=== PATIENT | female | born 1950 | race Caucasian/White ===

== ENCOUNTER 2020-01-15 16:02 | Inpatient (IN) | payer MEDICARE, OTHER ==
[~2020-01-15] VITALS: Ht 165.1 cm; Wt 84.3 kg
[2020-01-15] MEDS ORDERED: IV NORMAL SALINE 1,000ML 1,000 ML IV SCH (16:31)
[2020-01-15] MEDS ORDERED: IPRATRPIUM/ALBUTEROL 0.5/2.5MG 3 ML NEBU. ONE (16:48)
[2020-01-15] MEDS ORDERED: DEXAMETHASONE SOD PHOS 10 MG/ML VIAL. ONE (16:48)
--- NOTE | 2020-01-15 16:57 | EKG ---
[address] [address] Test Date: 2020-01-15 Test Time: 16:16:33 Pat Name: MARCO A DENG Department: Room: Gender: F Worship Leader: : 1950 Requested By: BLADIMIR SINGLETARY Order Number: [id number] Reading MD: Measurements Intervals [place] Rate: 75 P: 59 KS: 156 QRS: 54 QRSD: 98 T: 56 QT: 392 QTc: 440 Interpretive Statements SINUS RHYTHM NORMAL ECG RI6.02 No previous ECG available for comparison
[2020-01-15 17:00] LABS: BASO # 0.1 x10^3/uL (0.0-0.2); BASO % 1 % (0-3); EOS # 0.4 x10^3/uL (0.0-0.7); EOS % 6 % (0-3); HEMOGLOBIN 14.7 g/dL (12.0-15.5); LYMPH # 1.8 x10^3/uL (1.0-4.8); LYMPH % 26 % (24-48); MEAN CORPUSCULAR HEMOGLOBIN 27 pg (25-35); MEAN CORPUSCULAR HGB CONC 33 g/dL (31-37); MEAN CORPUSCULAR VOLUME 81 fL (79-100); MONO # 0.7 x10^3/uL (0.0-1.1); MONO % 10 % (0-9); NEUT % 57 % (31-73); PLATELET COUNT 330 x10^3/uL (140-400); RED BLOOD COUNT 5.42 x10^6/uL (3.50-5.40); RED CELL DISTRIBUTION WIDTH 15.9 % (11.5-14.5)
[2020-01-15] MEDS ORDERED: IPRATRPIUM/ALBUTEROL 0.5/2.5MG 3 ML NEBU. NEB ONE (17:00)
[2020-01-15] MEDS ORDERED: DEXAMETHASONE SOD PHOS 10 MG/ML VIAL. IV ONE (17:00)
[2020-01-15 17:02] LABS: CALCIUM 8.6 mg/dL (8.5-10.1); CREATININE 0.9 mg/dL (0.6-1.0); GFR 61.9; POTASSIUM 3.4 mmol/L (3.5-5.1)
[2020-01-15 17:14] LABS: ALBUMIN/GLOBULIN RATIO 1.1 (1.0-1.7); TOTAL BILIRUBIN 0.4 mg/dL (0.2-1.0); TOTAL PROTEIN 7.6 g/dL (6.4-8.2)
--- NOTE | 2020-01-15 17:33 | RAD ---
PORTABLE CHEST 1V History: Reason: soa / Spl. Instructions: / History: Comparison: CT December 29, 2012 Findings: Patchy left basilar opacity. No pleural effusion. No pneumothorax. Impression: 1. Patchy left basilar opacity, represent atelectasis or developing consolidation. Recommend follow-up. Electronically signed by: Franky Perry DO (01/15/2020 5:30 PM) [facility] – [place]
--- NOTE | 2020-01-15 17:37 | PHYS DOC ---
Past History Past Medical History: Asthma, COPD Past Surgical History: Hysterectomy Alcohol Use: None General Adult EDM: Chief Complaint: SHORTNESS OF BREATH HPI: HPI: 69-year-old female past medical history significant for COPD/asthma and current tobacco dependence, presents to the ED with complaints of worsening shortness of breath for the past few days, states she returned from [place] yesterday. States this feels like her COPD, last exacerbation was 2 to 3 years ago in which she was intubated at [facility]. No steroid use since then. States she was visiting family in [place], no known exposure to COVID-does not around any large crowds. Ports associated dry cough. ROS: Review of Systems: Review of Systems: Constitutional: Denies fever or chills Eyes: Denies change in visual acuity HENT: Denies nasal congestion or sore throat Respiratory: Denies cough or shortness of breath Cardiovascular: Denies chest pain or edema GI: Denies abdominal pain, nausea, vomiting, bloody stools or diarrhea : Denies dysuria Musculoskeletal: Denies back pain or joint pain Integument: Denies rash Neurologic: Denies headache, focal weakness or sensory changes Endocrine: Denies polyuria or polydipsia Lymphatic: Denies swollen glands Psychiatric: Denies depression or anxiety Heart Score: Risk Factors: Risk Factors: DM, Current or recent (<one month) smoker, HTN, HLP, family history of CAD, obesity. Risk Scores: Score 0 - 3: 2.5% MACE over next 6 weeks - Discharge Home Score 4 - 6: 20.3% MACE over next 6 weeks - Admit for Clinical Observation Score 7 - 10: 72.7% MACE over next 6 weeks - Early Invasive Strategies Current Medications: Current Meds: Current Medications Medications (Trade) Dose Ordered Sig/Rut Start Time Stop Time Status Last Admin Dose Admin Albuterol/ Ipratropium (Duoneb) 3 ml STK-MED ONCE 01/15/20 16:48 01/15/20 16:49 DC Dexamethasone Sodium Phosphate (Decadron) 10 mg STK-MED ONCE 01/15/20 16:48 01/15/20 16:49 DC Sodium Chloride 1,000 ml @ 1,000 mls/hr Q1H 01/15/20 16:31 01/15/20 17:30 DC 01/15/20 16:49 1,000 MLS/HR Allergies: Allergies: Allergies Coded Allergies Type Severity Reaction Last Updated Verified No Known Drug Allergies 01/15/20 No Physical Exam: PE: Constitutional: Well developed, well nourished, no acute distress, non-toxic appearance. [] HENT: Normocephalic, atraumatic, bilateral external ears normal, oropharynx moist, no oral exudates, nose normal. [] Eyes: EOMI, conjunctiva normal, no discharge. [] Neck: Normal range of motion, no tenderness, supple, no stridor. [] Cardiovascular:Heart rate regular rhythm, no murmur [] Lungs & Thorax: tachypneic with subcostal retractions, speaking in full sentences-does become labored, Abdomen: Bowel sounds normal, soft, no tenderness, no masses, no pulsatile masses. [] Skin: Warm, dry, no erythema, no rash. [] Back: No tenderness, no CVA tenderness. [] Extremities: No tenderness, no cyanosis, no clubbing, ROM intact, no unilateral edema. [] Neurologic: Alert and oriented X 3, normal motor function, normal sensory function, no focal deficits noted. [] Psychologic: Affect normal, judgement normal, mood normal. [] Current Patient Data: Labs: Laboratory Tests Test 01/15/20 16:30 White Blood Count 7.0 x10^3/uL (4.0-11.0) Red Blood Count 5.42 x10^6/uL (3.50-5.40) H Hemoglobin 14.7 g/dL (12.0-15.5) Hematocrit 44.0 % (36.0-47.0) Mean Corpuscular Volume 81 fL (79-100) Mean Corpuscular Hemoglobin 27 pg (25-35) Mean Corpuscular Hemoglobin Concent 33 g/dL (31-37) Red Cell Distribution Width 15.9 % (11.5-14.5) H Platelet Count 330 x10^3/uL (140-400) Neutrophils (%) (Auto) 57 % (31-73) Lymphocytes (%) (Auto) 26 % (24-48) Monocytes (%) (Auto) 10 % (0-9) H Eosinophils (%) (Auto) 6 % (0-3) H Basophils (%) (Auto) 1 % (0-3) Neutrophils # (Auto) 4.0 x10^3uL (1.8-7.7) Lymphocytes # (Auto) 1.8 x10^3/uL (1.0-4.8) Monocytes # (Auto) 0.7 x10^3/uL (0.0-1.1) Eosinophils # (Auto) 0.4 x10^3/uL (0.0-0.7) Basophils # (Auto) 0.1 x10^3/uL (0.0-0.2) Sodium Level 138 mmol/L (136-145) Potassium Level 3.4 mmol/L (3.5-5.1) L Chloride Level 101 mmol/L (98-107) Carbon Dioxide Level 27 mmol/L (21-32) Anion Gap 10 (6-14) Blood Urea Nitrogen 19 mg/dL (7-20) Creatinine 0.9 mg/dL (0.6-1.0) Estimated GFR (Cockcroft-Gault) 61.9 BUN/Creatinine Ratio 21 (6-20) H Glucose Level 94 mg/dL (70-99) Calcium Level 8.6 mg/dL (8.5-10.1) Total Bilirubin 0.4 mg/dL (0.2-1.0) Aspartate Amino Transferase (AST) 12 U/L (15-37) L Alanine Aminotransferase (ALT) 21 U/L (14-59) Alkaline Phosphatase 87 U/L (46-116) Creatine Kinase 143 U/L (26-192) Troponin I Quantitative < 0.017 ng/mL (0-0.055) TU-Fna-I-Type Natriuretic Peptide 41 pg/mL (0-124) Total Protein 7.6 g/dL (6.4-8.2) Albumin 4.0 g/dL (3.4-5.0) Albumin/Globulin Ratio 1.1 (1.0-1.7) Vital Signs: Vital Signs Date Time Temp Pulse Resp B/P (MAP) Pulse Ox O2 Delivery O2 Flow Rate FiO2 01/15/20 16:05 98.3 67 60 104/50 (68) 92 Room Air EKG: EKG: Sinus rhythm at 75 bpm, no axis deviation, normal intervals, no T wave inversions, no ST elevations or ST depressions Radiology/Procedures: Radiology/Procedures: []IMAGING REPORT Signed PATIENT: MARCO A DENG MACCOUNT: [id number] : 1950 LOCATION: ER AGE: 69 SEX: F EXAM STATUS: REG ER ORD. PHYSICIAN: BLADIMIR SINGLETARY DO REASON: soa PROCEDURE: PORTABLE CHEST 1V PORTABLE CHEST 1V History: Reason: soa / Spl. Instructions: / History: Comparison: CT December 29, 2012 Findings: Patchy left basilar opacity. No pleural effusion. No pneumothorax. Impression: 1. Patchy left basilar opacity, represent atelectasis or developing consolidation. Recommend follow-up. Electronically signed by: Franky Perry DO (01/15/2020 5:30 PM) [facility] DICTATED AND SIGNED BY: FRANKY PERRY DO DATE: 01/15/20 1730 CC: MABEL LOPEZ; BLADIMIR SINGLETARY DO ~ Course & Med Decision Making: Course & Med Decision Making Pertinent Labs and Imaging studies reviewed. (See chart for details) Patient with no fever, tachycardia or leukocytosis, does not meet SIRS criteria. Will cover with azithromycin for left basilar atelectasis versus pneumonia. Patient is tachypneic and was treated for COPD exacerbation, requires 3L NC (was 90% on arrival). Patient presented with tachypnea in the 60s, is now in the upper 20s. Still with shortness of breath. Agrees with plan to be admitted for COPD exacerbation IV antibiotics. COVID test pending. Patient stable time of admission and agrees with this plan. I have spoken with the patient and/or caregivers. I have explained the patient's condition, diagnosis and treatment plan based on the information available to me at this time. I have answered the patient's and/or caregivers questions and answered any concerns. The patient and/or caregivers have as good an understanding of the patient's diagnosis, condition and treatment plan as can be expected at this point. The patient has been stabilized within the capability of the emergency department. The patient will be transported for further care and management or will be moved to an observation or inpatient service. I have communicated with the staff or medical practitioner taking over this patient's care. Dylan Disclaimer: Dylan Disclaimer: This electronic medical record was generated, in whole or in part, using a voice recognition dictation system. Departure Departure: Impression: Primary Impression: COPD with exacerbation Additional Impression: Left lower lobe pneumonia Disposition: HOME/RESIDENCE PRIOR TO ADM Admitting Physician: Lenin Baarjas Condition: GUARDED Referrals: MABEL LOPEZ (PCP) Justification of Admission: Justification of Admission: Justification of Admission Dx: Yes Acute COPD Exacerbation: Acute COPD Exacerbation BLADIMIR WOODWARD DO Jan 15, 2020 17:37
[2020-01-15] MEDS ORDERED: IV NORMAL SALINE 250ML 250 ML ONE (18:11)
[2020-01-15] MEDS ORDERED: AZITHROMYCIN 500 MG VIAL. IV ONE (18:12)
[2020-01-15] MEDS ORDERED: AZITHROMYCIN 500 MG in IV NORMAL SALINE 250ML 250 ML IV ONE (18:15)
[2020-01-15] MEDS ORDERED: cefTRIAXone SODIUM 1 GM VIAL ONE (19:28)
[2020-01-15] MEDS ORDERED: IV NORMAL SALINE 50ML 50 ML ONE (19:28)
[2020-01-15 21:22] VITALS: BP 99/60
[2020-01-15] MEDS ORDERED: ALBU2.5V8 INH (22:26)
[2020-01-15] MEDS ORDERED: FLUT1BLS3 IH (22:26)
[2020-01-15 22:40] VITALS: BP 118/56
[2020-01-16 05:20] VITALS: BP 110/52
[2020-01-16 11:00] VITALS: BP 123/59
[2020-01-16] MEDS: FLUTICASONE/VILANTEROL 100/25 INHALER. INH SCH (12:09)
[2020-01-16] MEDS: LORazepam 0.5 MG TABLET PO SCH ×2 (12:10→20:59)
[2020-01-16] MEDS: POTASSIUM CHLORIDE 20 MEQ TABLET.ER. PO SCH ×2 (12:10→20:59)
--- NOTE | 2020-01-16 12:25 | HP ---
ADMIT DATE: ATTENDING PHYSICIAN: Dr. Rudolph CHIEF COMPLAINT: Shortness of breath. HISTORY OF PRESENT ILLNESS: The patient is a 69-year-old female with a longstanding history of COPD and continued tobacco dependence. She has been smoking since 1968. She recently got back from a plane trip to [place], [place]. She was visiting her daughter. At the airport, she got short of breath. She had wheezing. She had to get a wheelchair. She ____ cough. She had an episode of respiratory failure 3 years ago at [facility], requiring ICU and intubation. She has not had any exacerbations then. She was down to half a pack of cigarettes daily. She did not have any known exposure to COVID crowds. She has had a dry nonproductive cough related to her COPD. In the ED, she had a chest x-ray done, which showed a small patchy infiltrate in the left peripheral lower lobe. It is either early consolidation or atelectasis. Her white count was not particularly elevated. She was not febrile. She was started on steroids, nebulizers and antibiotic therapy. She is admitted then with community-acquired pneumonia. PAST MEDICAL HISTORY: Significant for COPD, asthma. PAST SURGICAL HISTORY: She has had a hysterectomy. ALLERGIES: She has no known drug allergies. SOCIAL HISTORY: She is a smoker, as I said. No alcohol use, drinks socially. CURRENT MEDICATIONS: She was started on an anxiety medicine just last week. She was on 2 inhalers prior to coming here, a steroid inhaler and albuterol. FAMILY HISTORY: Her mom is still alive at age 98, she is in a mcc in [place]. She has 3 other siblings. Her father at age 62 with complications of alcoholism and heart disease. One brother of heart disease at age 52. She is retired. REVIEW OF SYSTEMS: Significant for the recent travel. No fevers, COVID exposure, fevers, chills, nausea, vomiting. All other systems reviewed and turned to be negative. PHYSICAL EXAMINATION: GENERAL: When I saw her, this is a pleasant, middle-aged female. INITIAL VITAL SIGNS: Showed a blood pressure of 110/52, pulse is 76 and regular, temperature 97.0 degrees Fahrenheit, oxygen saturation 94% on 1 liter nasal cannula. HEENT: Head is without trauma. Pupils are reactive. Sclerae nonicteric. Oropharynx clear. NECK: Supple, no bruits. LUNGS: Diffuse wheezing in the upper airways. Minimal rhonchi noted at the left base. CARDIOVASCULAR: Showed regular rhythm. No gallop. Peripheral pulses are palpable and full. ABDOMEN: Soft, scaphoid, nontender, no organomegaly. Bowel sounds are hypoactive. EXTREMITIES: Showed no cyanosis or edema. NEUROLOGIC: Focally intact. Speech is fluent. Chest x-ray as noted. PERTINENT LABORATORY STUDIES: Hemoglobin is 14.7 g/dL with a white count of 7000. Electrolytes showed potassium slightly diminished at 3.4 mEq, creatinine is normal at 0.9, nonfasting blood sugar 156. Cardiac enzymes negative for coronary ischemia. ASSESSMENT: 1. A 69-year-old female with acute on chronic respiratory failure. 2. Exacerbation of chronic obstructive pulmonary disease. 3. Small infiltrate consistent with community-acquired pneumonia, left lower lobe. 4. Previous hysterectomy. 5. Generalized anxiety. PLAN: 1. Admit to the inpatient unit. 2. Intravenous Rocephin and Zithromax have been ordered. 3. Empiric corticosteroids. 4. Anxiety medicine. 5. Potassium replacement. 6. Serial chemistries. SELENE RUDOLPH MD DR: LYLE/jenni JOB#: [id number] / [id number] MABEL Douglas
[2020-01-16 15:00] VITALS: BP 106/57
[2020-01-16] MEDS: methylPREDNISolone SOD SUCC PF 125 MG/2 ML VIAL. IV SCH ×2 (15:26→21:00)
[2020-01-16] MEDS ORDERED: AZITHROMYCIN 500 MG in IV NORMAL SALINE 250ML 250 ML IV SCH (18:00)
[2020-01-16 19:48] VITALS: BP 116/63
[2020-01-16 23:18] VITALS: BP 131/52
[2020-01-17] MEDS: methylPREDNISolone SOD SUCC PF 125 MG/2 ML VIAL. IV SCH (05:59)
[2020-01-17 06:00] VITALS: BP 151/67
[2020-01-17] MEDS: LORazepam 0.5 MG TABLET PO SCH (08:17)
[2020-01-17] MEDS: POTASSIUM CHLORIDE 20 MEQ TABLET.ER. PO SCH (08:17)
[2020-01-17] MEDS: FLUTICASONE/VILANTEROL 100/25 INHALER. INH SCH (08:24)
[2020-01-17] MEDS ORDERED: LACTOBACILLUS RHAMNOSUS GG 1 CAPSULE. PO SCH (09:00)
[2020-01-17] MEDS ORDERED: NON FORMULARY ITEM (Fluticasone/Umeclidin/Vilanter (Trelegy Ellipta 100-62.5-25) 1 EACH) IH SCH (09:00)
[2020-01-17 11:00] VITALS: BP_SYST 120; BP_SYST 145; BP_DIAS 61; BP_DIAS 68
--- NOTE | 2020-01-17 13:10 | DS ---
DATE OF DISCHARGE: 01/17/2020 ATTENDING PHYSICIAN: Dr. Rudolph. FINAL DISCHARGE DIAGNOSES: 1. Acute on chronic respiratory failure. 2. Exacerbation of chronic obstructive pulmonary disease. 3. Small infiltrate left lower lobe consistent with community-acquired pneumonia. 4. History of hysterectomy. 5. Generalized anxiety disorder. HISTORY AND PHYSICAL: The patient is a very pleasant active 69-year-old female who continues to smoke. She has been smoking since age 18, has a [id number] history of tobacco use. She recently got back from a trip to [place], [place], visiting her daughter. She developed significant shortness of breath, wheezing, congestion and dyspnea with minimal exertion. In the ED, she had an x-ray, which showed a very small infiltrate at the lateral left border obscuring the left heart shadow. She was admitted then with community-acquired pneumonia. She had no COVID-19 exposure. A swab was ordered and was pending still. PHYSICAL EXAMINATION: Please see my dictated note. PERTINENT LABORATORY AND X-RAY STUDIES: Chest x-ray as noted, normal heart size, no decompensation, very small hazy infiltrate at the lateral left base consistent with pneumonia. Hemoglobin is maintained at 14.7 g/dL with a white count of 7000. Electrolytes within normal range. Potassium slightly low at 3.5 mEq. This was replaced while in the hospital. Nonfasting blood sugar 114. Troponin levels were nonischemic. Transaminases and liver functions all within normal range. COURSE IN THE HOSPITAL: The patient was admitted. She was started on intravenous antibiotics along with nebulizer therapy and a corticosteroid. She did well. She remained afebrile. White count was not elevated. I do not believe she has COVID-19 infection. She has no other symptoms. By the third hospital day morning, she was much better. She was not wheezing. She felt well and she wanted to go home and finish the round of therapy as an outpatient. Her blood pressure was quite stable, 131/52; temperature 97.6 degrees Fahrenheit; pulse is 60 and regular. Her room air saturations were 95% on room air. Prior to discharge, strong encouragement to avoid further tobacco use whether or not she will quit smoking remains to be seen. She will make a concerted effort. In the meantime, I wrote her a script for cephalexin 500 mg p.o. t.i.d. for 7 days and stop; Zithromax 250 p.o. daily for 7 more days and stop; prednisone 60 mg p.o. daily, to be followed closely next week and have a tapered dose. Her home meds nebulizers, albuterol and fluticasone remain unchanged. She also benefits with some Ativan 0.5 mg 1 b.i.d. as needed for anxiety. The patient was then discharged from the hospital in stable condition with explicit instructions and followup care. She will follow up with [facility] Vieyra a week from Friday. SELENE RUDOLPH MD DR: LYLE/jenni JOB#: [id number] / [id number] ACE Douglas
== END 2020-01-17 13:00 | disposition home or self-care (01) | DRG 193 ==
LOC: ER 16:02 → 1 SOUTH 20:58
PROVIDERS: ADMIT Hospitalist; ATTEND Hospitalist
DX: J18.9 Pneumonia, unspecified organism (principal); J96.20 Acute and chronic respiratory failure, unspecified whether with hypoxia or hypercapnia; J98.11 Atelectasis; J44.0 Chronic obstructive pulmonary disease with (acute) lower respiratory infection; J44.1 Chronic obstructive pulmonary disease with (acute) exacerbation; F17.210 Nicotine dependence, cigarettes, uncomplicated; F41.1 Generalized anxiety disorder; Z20.828 Contact with and (suspected) exposure to other viral communicable diseases; Z90.710 Acquired absence of both cervix and uterus; Z82.49 Family history of ischemic heart disease and other diseases of the circulatory system
CPT/HCPCS: 36415; 71045; 80053; 82550; 82947; 83880; 84484; 85025; 93005; 94640; 96361; 96365; 96367; 96375; 99406; J0456; J0696; J1100; J2930; J7050; 99285-25; J7030; U0003-CS

== ENCOUNTER → 2020-02-09 | Outpatient (CLI) | payer MEDICARE ==
[2020-01-17 11:00] VITALS: BP 120/68
[~2020-02-09] MED LIST: ALBU2.5V8 INH; FLUT1BLS3 IH
--- NOTE | 2020-02-09 12:34 | RAD ---
EXAM: DUAL ENERGY X-RAY ABSORPTIOMETRY (DEXA). HISTORY: Postmenopausal screening. FINDINGS: The lowest measured T-score is -1.7 in the lumbar spine, based on a bone mineral density of 0.976 g/cm^2. Refer to the worksheets for full detail. No comparison examinations are available. IMPRESSION: Low bone mass. Bone mineral density yields a T-score between -1.0 and -2.5. Fracture risk is increased. FRAX was not calculated. METHODOLOGY: Dual energy x-ray absorptiometry was performed to measure bone mineral density. The following analysis is based on the 2019 Official Positions of the International Society for Clinical Densitometry: Measurements of the hips and the average of L1-L4 are preferred. When the spine and/or hip cannot be feasibly measured or interpreted, or in the setting of hyperparathyroidism, distal radial bone mineral density may be measured. The lumbar spine T-score is based on the average bone mineral density of L1-L4. In the setting of artifact or anatomic abnormality, some lumbar levels may be excluded, and the remaining levels used for calculation. A single lumbar level is not used for diagnosis, and if only a single level is available for assessment, another anatomic site will be used to assign a diagnosis. The hip T-score is based on the bone mineral density measurement of the femoral neck or total proximal femur of either side, whichever is lowest. Bilateral mean values are not used for diagnosis. The forearm T-score is derived from 33% of the distal radius of the nondominant forearm. For postmenopausal and perimenopausal women, and men age 50 or older, of all ethnic groups, T-scores are calculated through comparison of the current measurement with the NHANES III database standard for females aged 20-29 years. The lowest T-score of the evaluated anatomic sites is used to assign a diagnosis based on the World Health Organization densitometric classification. In premenopausal females and males younger than age 50, a Z-score is calculated based on population specific reference data for patient sex and self-reported ethnicity. Electronically signed by: Baron Hansen MD (02/09/2020 12:31 PM) [id number]
--- NOTE | 2020-02-16 13:34 | RAD ---
EXAMINATION: Bilateral screening mammogram, 02/09/2020 11:30 AM CLINICAL INDICATION: 69-year-old woman presenting for screening mammogram. COMPARISON: Unable to obtain priors. New baseline. TECHNIQUE: Digital bilateral full-field CC and MLO views, and CC and MLO tomosynthesis views of the breasts were obtained. CAD was utilized. FINDINGS: The breasts contain scattered areas of fibroglandular density. There is no mass, suspicious calcification, or architectural distortion. There is an intramammary lymph node in the upper outer left breast. IMPRESSION: 1. No mammographic evidence of malignancy. 2. BI-RADS 1: Negative. 3. Routine annual screening mammogram is recommended in 1 year. The patient will receive a reminder letter by mail when she is due for her next exam. Electronically signed by: Julissa Forrester MD (02/16/2020 1:31 PM) [id number]
== END | disposition home or self-care (01) ==
LOC: DXRAD 11:05
PROVIDERS: ATTEND Physician Assistant
DX: Z12.31 Encounter for screening mammogram for malignant neoplasm of breast (principal); Z00.00 Encounter for general adult medical examination without abnormal findings; N95.9 Unspecified menopausal and perimenopausal disorder; Z78.0 Asymptomatic menopausal state
CPT/HCPCS: 77063; 77067; 77080

== ENCOUNTER → 2020-12-23 | Outpatient (CLI) | payer MEDICARE ==
[2020-01-17 11:00] VITALS: BP 120/68
--- NOTE | 2020-12-23 12:27 | RAD ---
Right foot 2 views: Reason for examination: Right dorsal foot pain. No acute fracture or dislocation is seen. There is some sclerotic density at the distal phalanx of th e great toe and at the base of the proximal phalanx of the third toe probably representing bone islan ds. There also appears to be a small lytic lesion probably representing a subchondral cyst medially a t the head of the fifth metatarsal bone Bone density is otherwise normal. No abnormal periosteal reac tion is seen. Joint spaces appear to be maintained. IMPRESSION: Sclerotic densities in the proximal phalanx of the great toe and at the base of the proximal phalanx of the third toe probably representing bone islands. Small lytic lesion at the head of the fifth metatarsal bone medially which probably represents a subc hondral cyst. Electronically signed by: Emilia Cardona MD (12/23/2020 12:24 PM) [id number]
== END ==
LOC: RAD 12:02
PROVIDERS: ATTEND Family Medicine
DX: M79.671 Pain in right foot (principal); M25.871 Other specified joint disorders, right ankle and foot; Z68.30 Body mass index [BMI] 30.0-30.9, adult
CPT/HCPCS: 73620

== ENCOUNTER → 2021-02-13 | Outpatient (CLI) | payer MEDICARE ==
[2020-01-17 11:00] VITALS: BP 120/68
--- NOTE | 2021-02-13 08:44 | RAD ---
EXAM: Bilateral digital screening mammogram with tomosynthesis. HISTORY: 70-year-old female presents for screening mammography. TECHNIQUE: Full-field digital craniocaudal and mediolateral oblique 2D and 3D tomosynthesis images of both breasts are obtained for evaluation. Computer aided detection was applied. COMPARISON: 02/09/2020 BREAST PARENCHYMAL DENSITY: Level A - Mostly fat. FINDINGS: There is no new suspicious mass, microcalcification or region of architectural distortion. There are stable findings consistent with reduction mammoplasty surgery. There has been slight interv al increase in a circumscribed nodule within the upper outer quadrant of the left breast, the appeara nce of which favors a lymph node. This maintains a benign morphology. The minimal interval change ove r a greater than 1 year interval favors a reactive etiology, possibly related to reported relatively recent left upper extremity vaccination. There is stable benign coarse calcification within the right breast. IMPRESSION: BI-RADS Category 2: Benign finding(s). RECOMMENDATION: Annual mammography is recommended. If your mammogram demonstrates that you have dense breast tissue, which could hide abnormalities, and if you have other risk factors for breast cancer that have been identified, you might benefit from s upplemental screening tests that may be suggested by your ordering physician. Dense breast tissue, i n and of itself, is a relatively common condition. This information is not provided to cause undue c oncern, but rather to raise your awareness and to promote discussion with your physician regarding th e presence of other risk factors, in addition to dense breast tissue. A report of your mammography re sults will be sent to you and your physician. You should contact your physician if you have any ques tions or concerns regarding this report. Mammography is a sensitive method for finding small breast cancers, but it does not detect them all a nd is not a substitute for careful clinical examination. A negative mammogram does not negate a clin ically suspicious finding and should not result in delay in biopsying a clinically suspicious abnorma lity. PQRS compliance statement - Patient information was entered into a reminder system with a target due date for the next mammogram. "Our facility is accredited by the [employer] Mammography Program." Electronically signed by: Sigrid Murrieta MD (02/13/2021 8:42 AM) [id number]
== END ==
LOC: MAMMO 07:42
PROVIDERS: ATTEND Physician Assistant
DX: Z12.31 Encounter for screening mammogram for malignant neoplasm of breast (principal); N63.21 Unspecified lump in the left breast, upper outer quadrant
CPT/HCPCS: 77063; 77067

== ENCOUNTER → 2021-04-18 | Day surgery (SDC) | payer MEDICARE ==
[~2021-04-18] MED LIST changes: +CITA10TA5 PO; +IV RINGERS SOLUTION,LACTATED 1,000 ML IV SCH; +PROPOFOL 10,000 MCG/ML (20ML) VIAL IV ONE; +TRIA1CAP3 PO
--- NOTE | 2021-04-18 11:17 | PDOC1 ---
History of Present Illness Reason for Visit: Colonoscopy History of Present Illness 70-year-old female follows up with colonoscopy for colon cancer screening she denies any colon problems at this time last colonoscopy was over 5 years ago no polyps at that time Allergies: Coded Allergies: No Known Drug Allergies (Unverified , 04/18/21) Past Medical History Cardiac: No pertinent hx Pulmonary: No pertinent hx GI: No pertinent hx Heme/Onc: No pertinent hx Hepatobiliary: No pertinent hx Psych: No pertinent hx Musculoskeletal: No pertinent hx Rheumatologic: No pertinent hx Infectious disease: No pertinent hx ENT: No pertinent hx Renal/: No pertinent hx Endocrine: No pertinent hx Dermatology: No pertinent hx Past Surgical History: Other (Colonoscopy) Family History: No pertinent hx Past Social History Smoke: No Alcohol: none Lives: with Family Review of Systems Review Of Systems Fourteen system , review of systems has been reviewed. See HPI for pertinent positives and negative responses, other sanchez all other systems are negative, non pertinent or non contributory Medications Current Medications Lactated Ringer's 1,000 ml @ 125 mls/hr Q8H IV Last administered on 04/18/21at 09:45; Start 04/18/21 at 10:00; Stop 04/18/21 at 21:59 Active Scripts Active Reported Triamterene-Hctz 37.5-25 Mg Cp (Triamterene/Hydrochlorothiazid) 1 Each Capsule 1 Cap PO DAILY Citalopram Hbr (Citalopram Hydrobromide) 10 Mg Tablet 10 Mg PO DAILY Trelegy Ellipta 100-62.5-25 (Fluticasone/Umeclidin/Vilanter) 1 Each Blst.w.dev 1 Each IH DAILY Proventil Hfa Inhaler (Albuterol Sulfate) 6.7 Gm Hfa.aer.ad 2 Puff INH PRN Q4HRS PRN Exam Vital Signs Vital Signs Date Time Temp Pulse Resp B/P (MAP) Pulse Ox O2 Delivery O2 Flow Rate FiO2 04/18/21 09:36 98.8 59 26 124/87 (99) 96 Room Air General Appearance: Alert, Oriented X3, Cooperative, No acute distress HEENT: Atraumatic, PERRLA, EOMI Respiratory: Clear to auscultation Heart: Regular rate, No murmurs Abdominal: Normal bowel sounds, Soft, No tenderness Extremities: No edema Skin: No significant lesion Neuro: Normal speech Assessment/Plan Assessment/Plan Screening colonoscopy COURSE Allergies Coded Allergies Type Severity Reaction Last Updated Verified No Known Drug Allergies 04/18/21 No Current Medications Medications (Trade) Dose Ordered Sig/Rut Route PRN Reason Start Time Stop Time Status Last Admin Dose Admin Lactated Ringer's 1,000 ml @ 125 mls/hr Q8H IV 04/18/21 10:00 04/18/21 21:59 04/18/21 09:45 Orders Procedure Category Date Status Time Anesthesia Adult Abdirahman ABDIRAHMAN 04/18/21 In Process Pre-Op Pr 09:48 Insert And Maintain Iv ABDIRAHMAN 04/18/21 In Process 09:48 Vital Signs, Per ABDIRAHMAN 04/18/21 In Process Protocol 09:48 Pulse Ox - ABDIRAHMAN 04/18/21 In Process Intermittent 09:48 Iv Ringers PHA 04/18/21 In Process Solution,Lactated (Iv 10:00 Vital Signs Date Time Temp Pulse Resp B/P (MAP) Pulse Ox O2 Delivery O2 Flow Rate FiO2 04/18/21 09:36 98.8 59 26 124/87 (99) 96 Room Air Justification of Admission: Justification of Admission: Justification of Admission Dx: N/A Acute COPD Exacerbation: Acute COPD Exacerbation BUBBA BROWNLEE MD Apr 18, 2021 11:17
[2021-04-18 12:15] VITALS: BP 133/70
== END | disposition home or self-care (01) ==
LOC: SURG 09:20
PROVIDERS: ATTEND Surgery
DX: Z12.11 Encounter for screening for malignant neoplasm of colon (principal); K57.30 Diverticulosis of large intestine without perforation or abscess without bleeding; K63.89 Other specified diseases of intestine; M19.90 Unspecified osteoarthritis, unspecified site; J44.1 Chronic obstructive pulmonary disease with (acute) exacerbation; F17.210 Nicotine dependence, cigarettes, uncomplicated; Z79.899 Other long term (current) drug therapy; Z90.710 Acquired absence of both cervix and uterus; Z98.890 Other specified postprocedural states; Z82.49 Family history of ischemic heart disease and other diseases of the circulatory system
CPT/HCPCS: G0121; J2704; J7120; G0105